=== PATIENT | female | born 1975 | race Two or more races ===

== ENCOUNTER → 2021-01-14 10:59 | Outpatient (CLI) | payer BC, SELFPAY ==
--- NOTE | 2021-01-14 11:11 | XR_ITS ---
PROCEDURE: XR LUMBAR SPINE MIN 4V CLINICAL INDICATION: ACUTE RIGHT SIDED LOW BACK PAIN W/O SCIATICA COMPARISON: No exams were available for comparison FINDINGS: No fracture or dislocation. No lytic or blastic change. There is normal mineralization. There is degenerative disc disease at the L4-5. There is sacralization of L5. 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 There is mild facet arthritic changes also at L4-5. Other findings:There is a moderate amount of retained colonic feces. IMPRESSION: Degenerative disc disease at L4-5 with sacralization of L5 with facet arthritic changes Dictated by: Cody Ball MD 01/14/2021 14:46 Cody Ball MD in [place] 01/14/2021 14:46
== END ==
PROVIDERS: PCP Family Medicine; Visit Provider Family Medicine
DX: M54.5 Low back pain (principal)
CPT/HCPCS: 72110

== ENCOUNTER → 2021-07-20 10:46 | Outpatient (CLI) | payer BC, SELFPAY | PROVIDERS: PCP Family Medicine; Visit Provider Nurse Practitioner | DX: Z20.822 Contact with and (suspected) exposure to COVID-19 (principal) | CPT/HCPCS: C9803; U0003; U0005 ==

== ENCOUNTER → 2022-12-26 10:38 | Outpatient (CLI) | payer BC, SELFPAY ==
--- NOTE | 2022-12-26 10:47 | XR_ITS ---
FINAL REPORT CLINICAL HISTORY: RT HAND PAIN, MASHED 2ND DIGIT FEB 6 FINDINGS: RIGHT HAND Three views of the right hand were obtained. There is a small calcification volar to the 2nd middle phalanx which may represent a small chip fracture. A 10 mm lytic lesion in the 2nd metacarpal is likely a cyst or enchondroma. There is soft tissue swelling of the 2nd digit. IMPRESSION: Findings may represent a small chip fracture of the 2nd middle phalanx. Lytic lesion in the 2nd metacarpal is likely a cyst or enchondroma. Reviewed, Interpreted and Dictated by Sam Hamm III, MD Transcribed by Gina Rubin Authenticated and [facility]
== END ==
PROVIDERS: PCP Family Medicine; Visit Provider Family Medicine
DX: M79.641 Pain in right hand (principal)
CPT/HCPCS: 73130